=== PATIENT | female | born 1940 | race Caucasian/White ===

== ENCOUNTER 2020-04-30 20:35 | Emergency (ER) | payer MEDICARE, MEDICAID ==
[~2020-04-30] VITALS: Ht 160 cm; Wt 63.0 kg
[2020-04-30 20:45] VITALS: BP_SYST 155
[2020-04-30] MEDS ORDERED: LIP40 PO (23:16)
[2020-04-30] MEDS ORDERED: ASA81 PO (23:16)
[2020-04-30] MEDS ORDERED: DICL100G19 TP (23:16)
[2020-04-30] MEDS ORDERED: LISI-600 PO (23:16)
[2020-04-30] MEDS ORDERED: [UNRECOGNIZED DRUG - CODE] PO (23:16)
[2020-04-30] MEDS ORDERED: HYDR100T25 PO (23:16)
[2020-04-30] MEDS ORDERED: CYAN250014 PO (23:16)
[2020-04-30] MEDS ORDERED: GLU500 PO ×2 (23:16)
[2020-04-30] MEDS ORDERED: INSU100V9 SQ (23:16)
[2020-04-30] MEDS ORDERED: LORA10TA7 PO (23:16)
[2020-05-01 00:20] VITALS: BP_SYST 148
== END 2020-05-01 00:20 | disposition home or self-care (01) ==
LOC: SED 20:35
DX: M25.552 Pain in left hip (principal); M25.561 Pain in right knee; I10 Essential (primary) hypertension; E11.9 Type 2 diabetes mellitus without complications; E78.5 Hyperlipidemia, unspecified; Z79.899 Other long term (current) drug therapy; Z79.82 Long term (current) use of aspirin; Z79.4 Long term (current) use of insulin; W18.39XA Other fall on same level, initial encounter; Y93.89 Activity, other specified; Y92.89 Other specified places as the place of occurrence of the external cause; Y99.8 Other external cause status
CPT/HCPCS: 72170-TC; 99284